=== PATIENT | male | born 1945 | race Caucasian/White ===

== ENCOUNTER 2020-09-14 18:50 | Inpatient (IN) | payer MEDICARE, OTHER ==
[~2020-09-14] VITALS: Ht 177.8 cm; Wt 45.7 kg
[~2020-09-14 18:50] MED LIST: ACET-2865 PO; ASCO500T20 PO; ASPI-556 PO; ATOR10TA84 PO; CYAN1TAB44 PO; ESCI-8 PO; FERR-72 PO; FOLI-130 PO; HYDR-4061 PO; LEVE250T PO; METO25 PO; MOM30 PO; MULT1CAP32 PO; OMEP20 PO; ONDA-104 PO; THIAMINE HCL100 MG PO; ZOLP10TA8 PO
[2020-09-14] MEDS ORDERED: SODIUM CHLORIDE 0.9% 1,000 ML IV ONE ×2 (19:15→21:45)
[2020-09-14] MEDS ORDERED: CARB100C9 PO (19:38)
[2020-09-14] MEDS ORDERED: PERCT PO (19:38)
[2020-09-14 21:15] LABS: HEMATOCRIT 33.8 % (41-53); HEMOGLOBIN 10.6 g/dL (13.5-17.5); MEAN CORPUSCULAR HEMOGLOBIN 33.4 pg (26.0-34.0); MEAN CORPUSCULAR HGB CONC 31.2 G/dL (31.0-37.0); MEAN CORPUSCULAR VOLUME 107 fL (80-100); PLATELET COUNT (AUTO) 228 K/uL (150-450); RED BLOOD CELL COUNT(AUTO) 3.16 MIL/uL (4.50-5.90); RED CELL DISTRIBUTION WIDTH 16.4 % (11.5-14.5)
[2020-09-14 21:31] LABS: ALBUMIN 2.3 g/dL (3.4-5.0); BILIRUBIN,TOTAL 0.8 mg/dL (0.1-1.0); CALCIUM, TOTAL 9.3 mg/dL (8.8-10.5); CREATININE 7.88 mg/dL (0.60-1.30); TOTAL PROTEIN, SERUM 7.5 g/dL (6.4-8.2)
[2020-09-14 21:39] LABS: POTASSIUM 6.1 mmol/L (3.5-5.1)
[2020-09-14 21:44] LABS: LYMPHOCYTES % (MANUAL) 8 % (22-44); METAMYELOCYTES % 1 % (0-0); MONOCYTES % (MANUAL) 3 % (2-9); SEGMENTED NEUTROPHILS % 70 % (40-70)
[2020-09-14 21:45] LABS: BAND NEUTROPHILS % (MANUAL) 18 % (0-5); WBC MORPHOLOGY TOXIC VACUOLATION
[2020-09-14] MEDS ORDERED: ACETAMINOPHEN 325 MG TABLET PO PRN (21:45)
[2020-09-14] MEDS ORDERED: ONDANSETRON HCL 4 MG/2 ML VIAL IVP PRN (21:45)
[2020-09-14] MEDS ORDERED: MORPHINE SULFATE 2 MG/ML SYRINGE IVP PRN (22:30)
[2020-09-14] MEDS ORDERED: LORazepam 2 MG/ML VIAL IVP PRN (22:30)
[2020-09-14 22:45] VITALS: BP 125/77
[2020-09-15 05:00] VITALS: BP 107/46
[2020-09-15 08:16] VITALS: BP 96/42
[2020-09-15 16:07] VITALS: BP 121/57
[2020-09-15 17:34] LABS: COVID AG,FIA SOURCE NASOPHARYNGEAL
[2020-09-15 19:55] VITALS: BP 114/49
== END 2020-09-15 20:55 | DRG 871 ==
LOC: EMS 18:50 → 6N 21:33
PROVIDERS: ADMIT Internal Medicine; ATTEND Internal Medicine
DX: A41.89 Other specified sepsis (principal); E43 Unspecified severe protein-calorie malnutrition; J96.01 Acute respiratory failure with hypoxia; U07.1 COVID-19; J12.82 Pneumonia due to coronavirus disease 2019; E87.0 Hyperosmolality and hypernatremia; I50.32 Chronic diastolic (congestive) heart failure; I13.0 Hypertensive heart and chronic kidney disease with heart failure and stage 1 through stage 4 chronic kidney disease, or unspecified chronic kidney disease; N17.9 Acute kidney failure, unspecified; R18.8 Other ascites; Z68.1 Body mass index [BMI] 19.9 or less, adult; Z51.5 Encounter for palliative care; Z66 Do not resuscitate; R65.20 Severe sepsis without septic shock; E11.22 Type 2 diabetes mellitus with diabetic chronic kidney disease; E11.65 Type 2 diabetes mellitus with hyperglycemia; E66.01 Morbid (severe) obesity due to excess calories; E78.00 Pure hypercholesterolemia, unspecified; E78.5 Hyperlipidemia, unspecified; E87.5 Hyperkalemia; F15.10 Other stimulant abuse, uncomplicated; F17.200 Nicotine dependence, unspecified, uncomplicated; G40.909 Epilepsy, unspecified, not intractable, without status epilepticus; N18.30 Chronic kidney disease, stage 3 unspecified; N40.1 Benign prostatic hyperplasia with lower urinary tract symptoms; N50.89 Other specified disorders of the male genital organs; R33.8 Other retention of urine; K21.9 Gastro-esophageal reflux disease without esophagitis; I95.9 Hypotension, unspecified; Z79.899 Other long term (current) drug therapy; Z71.6 Tobacco abuse counseling; Z71.51 Drug abuse counseling and surveillance of drug abuser
CPT/HCPCS: 87081; 87147; 87426; 99291; J7030; 36415-L1; 36415-TC; 71045-TC